=== PATIENT | male | born 1990 | race Caucasian/White ===

== ENCOUNTER 2017-07-07 00:29 | Emergency (ER) | payer SELFPAY ==
[~2017-07-07] VITALS: Ht 188 cm; Wt 120.6 kg
[2017-07-07] MEDS ORDERED: AMOXICILLIN500 MG PO (01:07)
[2017-07-07 01:09] VITALS: BP 135/90
== END 2017-07-07 01:15 | disposition home or self-care (01) | DRG 605 ==
LOC: ED 00:29
PROC: 0HQ8XZZ Repair Buttock Skin, External Approach (ICD-10-PCS; principal; 2017-07-07)
DX: S31.811A Laceration without foreign body of right buttock, initial encounter (principal); F17.210 Nicotine dependence, cigarettes, uncomplicated; W26.0XXA Contact with knife, initial encounter; Y92.810 Car as the place of occurrence of the external cause

== ENCOUNTER 2017-07-21 18:46 | Emergency (ER) | payer SELFPAY ==
[~2017-07-21] VITALS: Ht 188 cm; Wt 109.0 kg
[~2017-07-21 18:46] MED LIST: AMOXICILLIN500 MG PO
[2017-07-21 19:15] VITALS: BP 159/77
== END 2017-07-21 19:15 | disposition home or self-care (01) | DRG 605 ==
LOC: ED 18:46
DX: S31.819A Unspecified open wound of right buttock, initial encounter (principal); F17.210 Nicotine dependence, cigarettes, uncomplicated; X58.XXXA Exposure to other specified factors, initial encounter

== ENCOUNTER 2019-08-15 20:07 | Emergency (ER) | payer OTHER ==
[~2019-08-15] VITALS: Ht 188 cm; Wt 117.0 kg
[2019-08-15] MEDS ORDERED: SILVADENE1 % EX (20:28)
[2019-08-15] MEDS ORDERED: MOTRIN800 MG PO (20:28)
[2019-08-15 20:46] VITALS: BP 128/64
== END 2019-08-15 20:53 | disposition home or self-care (01) | DRG 935 ==
LOC: ED 20:07
PROC: 2W2CX4Z Dressing of Right Lower Arm using Bandage (ICD-10-PCS; principal; 2019-08-15)
DX: T22.111A Burn of first degree of right forearm, initial encounter (principal); F17.210 Nicotine dependence, cigarettes, uncomplicated; X15.0XXA Contact with hot stove (kitchen), initial encounter; Y93.G3 Activity, cooking and baking; Y92.511 Restaurant or cafe as the place of occurrence of the external cause; Y99.0 Civilian activity done for income or pay

== ENCOUNTER 2019-10-16 13:12 | Emergency (ER) | payer SELFPAY ==
[~2019-10-16 13:12] MED LIST changes: +MOTRIN800 MG PO; +SILVADENE1 % EX
[2019-10-16] MEDS ORDERED: AMOXICILLIN500 M2 PO ×2 (13:36)
[2019-10-16] MEDS ORDERED: FLOXIN OTIC0.3 % AS ×2 (13:36)
[2019-10-16 13:48] VITALS: BP 134/89
== END 2019-10-16 13:48 | disposition home or self-care (01) | DRG 156 ==
LOC: ED 13:12
DX: H60.92 Unspecified otitis externa, left ear (principal); J02.9 Acute pharyngitis, unspecified; F17.210 Nicotine dependence, cigarettes, uncomplicated

== ENCOUNTER 2020-03-06 16:04 | Emergency (ER) | payer SELFPAY ==
[~2020-03-06] VITALS: Ht 188 cm; Wt 86.0 kg
[~2020-03-06 16:04] MED LIST changes: +AMOXICILLIN500 M2 PO; +FLOXIN OTIC0.3 % AS
[2020-03-06 17:47] VITALS: BP 146/70
== END 2020-03-06 17:56 | disposition home or self-care (01) | DRG 556 ==
LOC: ED 16:04
DX: M79.671 Pain in right foot (principal); M25.571 Pain in right ankle and joints of right foot; F17.210 Nicotine dependence, cigarettes, uncomplicated; X50.0XXA Overexertion from strenuous movement or load, initial encounter; Y92.009 Unspecified place in unspecified non-institutional (private) residence as the place of occurrence of the external cause

== ENCOUNTER 2020-05-13 14:47 | Emergency (ER) | payer SELFPAY ==
[~2020-05-13] VITALS: Ht 188 cm; Wt 105.0 kg
[2020-05-13 15:37] LABS: HEMATOCRIT 44.2 % (39.0-50.0); HEMOGLOBIN 14.8 g/dl (14.0-18.0); IMMATURE GRANULOCYTES 0.2 % (0.0-5.0); MEAN CELL VOLUME 88.9 fL CALC (80.0-100.0); MEAN CORPUSCULAR HGB 29.8 pG CALC (26.0-32.0); MEAN CORPUSCULAR HGB CONC 33.5 g/dL CAL (32.0-36.0); NEUT# 5.11 thou/uL (1.82-7.42); RED BLOOD COUNT 4.97 mill/uL (4.70-6.10)
[2020-05-13 15:46] LABS: ALBUMIN 4.7 g/dL (3.2-5.0); ALKALINE PHOSPHATASE 102 u/l (38-126); ANION GAP 14 (6-22 (CALC)); BILIRUBIN, TOTAL 0.4 mg/dL (0.0-1.4); BUN 13 mg/dL (9-20); BUN/CREATININE RATIO 16 (12-20 (CALC)); CARBON DIOXIDE 26 mmol/l (22-30); CHLORIDE 104 mmol/l (95-108); CREATININE 0.8 mg/dL (0.7-1.3); GFR > 60 ML/MIN (>=60 (CALC)); GFR FOR AFR.AMER. > 60 ML/MIN (>=60 (CALC)); POTASSIUM 4.3 mmol/l (3.5-5.1); SGOT/AST 42 u/l (17-59); SODIUM 139 mmol/l (137-146)
[2020-05-13 16:12] LABS: URINE BILIRUBIN - DIPSTICK NEGATIVE (NEGATIVE); URINE BLOOD DIPSTICK NEGATIVE (NEGATIVE); URINE COLOR YELLOW; URINE GLUCOSE - DIPSTICK NEGATIVE (NEGATIVE); URINE KETONE NEGATIVE (NEGATIVE); URINE LEUK ESTERASE NEGATIVE (NEGATIVE); URINE NITRITE - DIPSTICK NEGATIVE (Negative); URINE PH 5.5 (4.5-8.0); URINE PROTEIN - DIPSTICK NEGATIVE (NEG-TRACE); URINE SPECIFIC GRAVITY >=1.030; URINE UROBILINOGEN - DIPSTICK 0.2 E.U./dL (0.2)
[2020-05-13] MEDS ORDERED: NAPROXEN DR500 MG PO (17:21)
[2020-05-13 17:28] VITALS: BP 119/62
== END 2020-05-13 17:28 | disposition home or self-care (01) | DRG 563 ==
LOC: ED 14:47
PROVIDERS: Student in an Organized Health Care Education/Training Program
DX: S39.011A Strain of muscle, fascia and tendon of abdomen, initial encounter (principal); F17.200 Nicotine dependence, unspecified, uncomplicated; X50.0XXA Overexertion from strenuous movement or load, initial encounter; Y92.89 Other specified places as the place of occurrence of the external cause; Y99.0 Civilian activity done for income or pay
CPT/HCPCS: Q9967